=== PATIENT | female | born 1995 | race Caucasian/White ===

== ENCOUNTER 2024-01-07 14:45 | Outpatient (CLI) | payer OTHER ==
--- NOTE | 2024-01-07 16:23 | XRAY Report ---
PROCEDURE: Foot 3+V LT INDICATIONS: PAIN IN LEFT FOOT TECHNIQUE: 3 views of the foot were acquired. COMPARISON: None. FINDINGS: Bones: No displaced acute fracture. No dislocation. Possible bone island at the fourth distal phalanx . Soft tissues: No suspicious calcifications. IMPRESSION: No acute radiographic abnormality. If there is further concern for soft tissue or stress/nondisplaced injuries, consider MRI. Reviewed by: Joe Womack MD on 01/07/2024 4:22 PM PDT Approved by: Joe Womack MD on 01/07/2024 4:22 PM PDT Station ID: [id number]
== END 2024-01-07 15:00 | disposition home or self-care (01) ==
LOC: DI.N 14:45
PROVIDERS: ATTEND Physician Assistant Medical
DX: M79.672 Pain in left foot (principal)